=== PATIENT | male | born 1970 | race Hispanic/Latino ===

== ENCOUNTER 2019-11-06 11:11 | Inpatient (IN) | payer MEDICARE, OTHER ==
[~2019-11-06] VITALS: Ht 185.4 cm; Wt 82.0 kg
--- NOTE | 2019-11-06 11:46 | NUR ---
DIRECT ADMISSION FOR SERVICES OF DR. SEVERINO . . PT AAO X 3 , ORIENTATED TO HIS ROOM AND ADMISSION DATA. AND DR. PRADHAN .
--- NOTE | 2019-11-06 12:20 | NUR ---
PT TO COMPO CONVEYOR OPERATOR , VIA BED FOR THE INSERTION OF A PERMACATHETER, ORDER. CONSENT ,
--- NOTE | 2019-11-06 12:23 | NUR ---
PT HAS A LEFT LEG BRACE , PT HX OF HAVING FREQ , ANKLE SURGERY, AND HAS HARDWARE , IN HIS LOWER LEG , STATED THAT HE ALSO HAS A FRICTION WOUND , UCLER CLOSE TO HIS ANKLE THAT HE GOES TO WOUND CARE FOR SERVICES , WILL MONITOR . AREA . DENIES ANY DISCOMFORT. IV . ACCESS STARTED UNDER ASPECT TECH ,WITH A 18 abbocaTH, .with good blood return noted. site care. given
[2019-11-06 12:27] LABS: MEAN CORPUSCULAR HEMOGLOBIN 34.8 pg (27.0-33.0); MEAN CORPUSCULAR HGB CONC 34.3 g/dL (32.0-36.0); MEAN CORPUSCULAR VOLUME 101.7 fL (79-99); PLATELET COUNT (AUTO) 245 K/uL (130-400); RED BLOOD CELL COUNT(AUTO) 1.78 MIL/uL (4.50-6.20); RED CELL DISTRIBUTION WIDTH 15.2 % (11.0-15.5); WHITE BLOOD COUNT (AUTO) 4.1 K/uL (4.8-10.8)
[2019-11-06 12:40] LABS: INR 0.99 (0.85-1.15); PROTHROMBIN TIME 10.7 SEC (9.6-11.6)
[2019-11-06 12:41] LABS: HEMATOCRIT 18.1 % (42-54)
[2019-11-06 13:02] LABS: HEMOGLOBIN A1C 7.2 % (4.0-6.0)
[2019-11-06 13:29] VITALS: BP 144/87
[2019-11-06 13:57] LABS: % IRON SATURATION 18.4 % (30-44)
[2019-11-06] MEDS ORDERED: LIDOCAINE HCL 1% MDV 50ML VIAL ONE (14:12)
[2019-11-06 14:13] LABS: ALBUMIN 3.2 g/dL (3.5-5.0); BILIRUBIN,TOTAL 0.4 mg/dL (0.2-1.0); CREATININE 6.7 mg/dL (0.5-1.5); POTASSIUM 3.8 mmol/L (3.5-5.1)
--- NOTE | 2019-11-06 15:00 | NUR ---
POST OP PT ARRIVED FROM FLOATING DERRICK OPERATOR, R CHEST PERMA CATH IN PLACE, PT IS AWAKE, ALERT AND ORIENTED, DRESSING D/I, NO DRAINAGE OR BLEEDING NOTED, INFORMED PRIMARY, MONITOR V/S
[2019-11-06 15:46] LABS: CREATININE 6.7 mg/dL (0.5-1.5)
[2019-11-06] MEDS ORDERED: SODIUM CHLORIDE 0.9% 10 ML VIAL IVP SCH (16:00)
[2019-11-06] MEDS ORDERED: DEXTROSE 50%-WATER 50 ML DISP.SYRIN IV PRN (16:00)
[2019-11-06] MEDS ORDERED: GLUCAGON 1MG KIT 1 MG ML IM PRN ×2 (16:00→18:15)
[2019-11-06] MEDS ORDERED: ONDANSETRON HCL 4 MG/2 ML VIAL IVP PRN (16:00)
[2019-11-06] MEDS ORDERED: ACETAMINOPHEN 325 MG TAB PO PRN ×2 (16:00)
--- NOTE | 2019-11-06 16:00 | NUR ---
left arm restriction band placed . iv dc to his left forearm, , restarted a 18 abbocath under aspect tech, to his rt forearm ,with good blood return noted. site care given,, review plan of care and cont .dr. kumari
[2019-11-06] MEDS ORDERED: INSULIN R PO SSI SQ SCH (16:30)
[2019-11-06 17:21] VITALS: BP 141/78
[2019-11-06] MEDS ORDERED: PANT40TA54 PO (18:06)
[2019-11-06] MEDS ORDERED: CALC0.5C11 PO (18:06)
[2019-11-06] MEDS ORDERED: PRED10TA3 PO (18:06)
[2019-11-06] MEDS ORDERED: TACR1CAP10 PO (18:06)
[2019-11-06] MEDS ORDERED: ASPI-556 PO (18:06)
[2019-11-06] MEDS ORDERED: ROSU5TAB12 PO (18:06)
[2019-11-06] MEDS ORDERED: FURO40TA5 PO (18:06)
[2019-11-06] MEDS ORDERED: NIFE20CA PO (18:06)
[2019-11-06] MEDS ORDERED: CHOL200012 PO (18:06)
[2019-11-06] MEDS ORDERED: INSLAN SQ (18:11)
[2019-11-06] MEDS ORDERED: SEVE800T27 PO (18:11)
--- NOTE | 2019-11-06 18:55 | NUR ---
DILAYSIS TREATMENT STARTED AT 1821. SEE DIALYSIS FLOW SHEET FOR V/S AND TREATMENT , ALSO WAS GIVEN ONE UNIT OF PRBC , . FOR A HGB OF 6.2 SEE BLOOD TRANSFUSIONFLOW SHEET FOR V/S DID NOT HAVE A REACTION TO BLOOD TRANSFUSION MONITOR V/S AND PT . INFUSING VIA DIALYSIS ,TOLERATE WELL
[2019-11-06 19:20] VITALS: BP 157/89
[2019-11-06] MEDS: INSULIN HUMULIN R 100 UNIT/ML 3ML SQ SCH (21:00)
[2019-11-06 23:21] VITALS: BP 147/86
--- NOTE | 2019-11-06 23:38 | NUR ---
TELE TELE MONITOR PLACED AT THIS TIME. TELE MONITOR REPORTING SINUS RHYTHM 94 BPM.
[2019-11-07 03:15] VITALS: BP 142/76
[2019-11-07] MEDS: DEXTROSE 50%-WATER 50 ML DISP.SYRIN IV PRN (05:44)
[2019-11-07] MEDS: INSULIN HUMULIN R 100 UNIT/ML 3ML SQ SCH ×4 (07:30→21:32)
[2019-11-07 08:17] VITALS: BP 148/80
[2019-11-07] MEDS ORDERED: SODIUM CHLORIDE 0.9% 1000ML 1,000 ML IV PRN (10:15)
[2019-11-07] MEDS ORDERED: ACETAMINOPHEN 325 MG TAB PO PRN (10:15)
[2019-11-07] MEDS ORDERED: HEPARIN SODIUM 5000UNIT/ML 1ML VIAL IJ PRN (10:15)
[2019-11-07] MEDS ORDERED: 0.9% SODIUM CHLORIDE 1000 ML IV BAG IV PRN (10:15)
[2019-11-07] MEDS ORDERED: EPOETIN ALFA 10,000 UNIT/ML VIAL SQ SCH (11:45)
[2019-11-07 12:16] VITALS: BP 143/82
--- NOTE | 2019-11-07 14:20 | NUR ---
PT REQUESTING MORE INFORMATION ON DIALYSIS OPTIONS BEFORE ACCEPTING FISTULA PLACEMENT. DR SEVERINO MADE AWARE. CARDIOVASCULAR CONSULT STOPPED/PLACED ON HOLD PER MD AND WILL SEE PT TOMORROW. CHARGE NURSE BILLY QUILES MADE AWARE OF SITUATION.
--- NOTE | 2019-11-07 16:09 | NUR ---
[facility] consult patient assessed as ordered. Wound care recommendations submitted per protocol. Addendum: 11/07/19 at 1612 by BHARATHI CASTANEDA RN/DAVID Amended: Links added.
[2019-11-07 16:18] VITALS: BP 177/94
[2019-11-07 19:49] LABS: HEMATOCRIT 18.4 % (42-54)
--- NOTE | 2019-11-07 19:56 | NUR ---
MD REPEAT H/H RESULTS CALLED BY LAB= 6.2/18.4, ON CRITICAL LEVEL. PAGED ON BLACKWOOD, LEAD RIDER MD VIA ANSWERING SERVICE. MD CALLED BACK AND REFERRED CRITICAL VALUES WELL PT'S ELEVATED BP. NEW ORDERS GIVEN BY , PLEASE REFER TO CPOE. WILL MEDICATE PT.
--- NOTE | 2019-11-07 20:26 | NUR ---
MEDS SHIFT ASSESSMENT DONE, PLEASE REFER TO CHART. DUE MEDS ADMINISTERED, TOLERATED WELL. KEPT RESTED AND COMFORTABLE IN BED. CALL LIGHT WITHIN REACH. WILL MONITOR PT. Addendum: 11/08/19 at 0056 by CHERY HINTON RN RN Amended: Links added.
[2019-11-07 20:50] VITALS: BP 181/103
[2019-11-07] MEDS ORDERED: AMLODIPINE BESYLATE 5 MG TAB PO SCH (21:15)
[2019-11-07] MEDS: HONEY 1 APPL/ML TUBE TP SCH (22:22)
--- NOTE | 2019-11-07 22:25 | NUR ---
WOUND PT JUST HAD HIS SHOWER. WOUND DRESSING DONE TO LEFT ANKLE ULCERS. CLEANSED WITH SALINE, PAT DRY THEN APPLIED MEDIHONEY. ULCERS COVERED WITH GAUZE THEN SECURED WITH KERLIX AND FANG WRAP. Addendum: 11/08/19 at 0103 by CHERY HINTON RN RN Amended: Links added.
[2019-11-08] VITALS (7 sets, daily range): BP systolic 170–186; BP diastolic 91–107
--- NOTE | 2019-11-08 00:29 | NUR ---
BLOOD SUGAR PT AWAKENED AND CALLED FOR BLOOD SUGAR CHECK. PT CLAIMS SWEATY AND IS FEELING BAD. BLOOD SUGAR CHECKED=31. D50 1 AMPULE GIVEN IV. PROVIDED PT WITH SNACKS AND ENCOURAGED TO EAT. RANDOM BLOOD GLUCOSE ORDERED STAT. WILL RE-ASSESS PT.
[2019-11-08] MEDS: DEXTROSE 50%-WATER 50 ML DISP.SYRIN IV PRN (00:31)
--- NOTE | 2019-11-08 01:00 | NUR ---
RE-CHECKED BLOOD SUGAR RE-HSOEOCZ=847. PT CLAIMS OF FEELING BETTER. WILL MONITOR PT.
[2019-11-08 05:30] LABS: BASOPHILS % (AUTO) 0.2 % (0.0-5.0); EOSINOPHILS % (AUTO) 0.9 % (0.0-8.0); LYMPHOCYTES % (AUTO) 40.6 % (21.0-51.0); MEAN CORPUSCULAR HEMOGLOBIN 34.2 pg (27.0-33.0); MEAN CORPUSCULAR VOLUME 100.5 fL (79-99); MONOCYTES % (AUTO) 9.3 % (3.0-13.0); NEUTROPHILS % (AUTO) 48.8 % (40.0-77.0); PLATELET COUNT (AUTO) 190 K/uL (130-400); RED BLOOD CELL COUNT(AUTO) 1.93 MIL/uL (4.50-6.20); RED CELL DISTRIBUTION WIDTH 15.3 % (11.0-15.5); WHITE BLOOD COUNT (AUTO) 4.3 K/uL (4.8-10.8)
[2019-11-08 05:34] LABS: HEMATOCRIT 19.4 % (42-54)
[2019-11-08 05:57] LABS: CREATININE 4.3 mg/dL (0.5-1.5); PHOSPHORUS 4.8 mg/dL (2.5-4.9); POTASSIUM 4.1 mmol/L (3.5-5.1)
[2019-11-08] MEDS: INSULIN HUMULIN R 100 UNIT/ML 3ML SQ SCH ×2 (06:15→11:30)
--- NOTE | 2019-11-08 06:15 | NUR ---
ROUNDS PT IS RESTING WELL, FAIRLY ASLEEP. KEPT UNDISTURBED FOR NOW. FOR MORE CARE.
[2019-11-08 08:10] LABS: HEPATITIS Bs ANTIGEN SCREEN P Negative (Negative)
--- NOTE | 2019-11-08 11:33 | NUR ---
CM NOTE/[facility] REFERRAL NEW REFERRAL FOR [facility] FOR PERITONEAL DIALYSIS PER DR. SEVERINO. LESLIE FILLED, REFERRAL SENT TO [facility], WILL FOLLOW UP FOR SUBMITTANCE. PENDING CHEST XRAY RESULTS, WILL FAX WHEN OBTAINED.
--- NOTE | 2019-11-08 14:30 | NUR ---
DR. SEVERINO MD HERE TO SEE PATIENT. REVIEWED HOME MEDICATIONS. INFORMED OF PATIENTS BLOOD PRESSURE AND BLOOD SUGAR TRENDS IN HOSPITAL. DR. SEVERINO SPOKE TO PATIENT IN REGARDS TO HEMODIALYSIS TREATMENT OPTIONS (AV GRAFT VS FISTULA VS PERITONEAL DIALYSIS). PATIENT TOLD DR. SEVERINO THAT HE PLANS TO HAVE RENAL TRANSPLANT IN 3 MONTHS AND DOES NOT SEE RATIONAL WITH HAVING A PERMANENT HD ACCESS PLACED RIGHT NOW IF HE MAY NOT NEED DIALYSIS TREATMENTS AFTER RENAL TRANSPLANT. DR. SEVERINO EXPLAINED TO PATIENT THAT IT WAS A GOOD IDEA TO HAVE AN AV FISTULA PLACED JUST IN CASE PLAN FOR RENAL TRANSPLANT DOESN'T PROCEED PLANNED. PATIENT TOLD DR. SEVERINO HE WAS NOT READY TO MAKE A DECISION YET.
--- NOTE | 2019-11-08 14:53 | NUR ---
CM NOTE/[facility] PER [facility] AT [facility], PROCESSING CLINICAL INFORMATION. CXR REPORT ALONG WITH COVID ASSESSMENT FAXED AND RECEIVED.
--- NOTE | 2019-11-08 15:00 | NUR ---
DR. TREVINO' NURSE SPOKE TO DR. JUAREZ'S NURSE BHARAT AND UPDATED THAT PATIENT HAS NOT MADE DECISION TO PROCEED WITH AV GRAFT VS FISTULA PLACEMENT YET.
--- NOTE | 2019-11-08 15:32 | NUR ---
RD NOTIFICATION Pt with 75gm CC, Renal Dialysis Diet order in place. Pt diet held at time of screen. Recommend to continue current diet order. RD to follow up with Peritoneal Dialysis Nutrition education. RD to continue to monitor. Please notify as additional nutrition concerns arise. Thank you. Addendum: 11/08/19 at [address] Amended: Links added.
--- NOTE | 2019-11-08 15:40 | NUR ---
CM INITIAL ASSESSMENT MEET WITH PATIENT IN ROOM. PER PATIENT, IS SEMI-INDEPENDENT WITH ADLS, LIVES WITH SPOUSE AND SON, HAS TRANSFER CHAIR, AND FEELS SAFE TO RETURN HOME ONCE MEDICALLY CLEARED. RENAL PENDING DIALYSIS CHAIR DATE/TIME. WILL FOLLOW UP ACCORDINGLY. Addendum: 11/08/19 at 1541 by FRANCISCO GAXIOLA RN CM Amended: Links added.
[2019-11-08] MEDS: AMLODIPINE BESYLATE 5 MG TAB PO SCH (16:34)
[2019-11-08] MEDS: SEVELAMER HCL 800 MG TABLET PO SCH (17:39)
[2019-11-08] MEDS: TACROLIMUS 1 MG CAPSULE PO SCH (20:08)
[2019-11-08] MEDS: HONEY 1 APPL/ML TUBE TP SCH (20:08)
--- NOTE | 2019-11-08 20:12 | NUR ---
PATIENT WITH ELEVATED BP, 182/89, I CALLED DR. JARAD BLACKWOOD. NEW ORDERS FOR LISINOPRIL 40 PO NOW AND THEN DAILY. PATIENT UPDATED ON NEW ORDERS. PATIENT ALSO WITH ELEVATED GLUCOSE. PER PATIENT, HE DID NOT RECEIVE LANTUS THIS MORNING. HE STATES HIS SUGAR DROPS. PER REPORT, PATIENT IS NOT ON AN INSULIN SLIDING SCALE, ONLY LANTUS 15 UNITS DAILY. WILL CONT TO MONITOR CLOSELY.
[2019-11-08] MEDS ORDERED: LISINOPRIL 40 MG TABLET PO SCH (21:15)
[2019-11-09 04:00] VITALS: BP 176/89
[2019-11-09 05:13] LABS: HEMATOCRIT 22.4 % (42-54); MEAN CORPUSCULAR HEMOGLOBIN 32.9 pg (27.0-33.0); MEAN CORPUSCULAR HGB CONC 33.5 g/dL (32.0-36.0); MEAN CORPUSCULAR VOLUME 98.2 fL (79-99); PLATELET COUNT (AUTO) 188 K/uL (130-400); RED BLOOD CELL COUNT(AUTO) 2.28 MIL/uL (4.50-6.20); RED CELL DISTRIBUTION WIDTH 14.8 % (11.0-15.5); WHITE BLOOD COUNT (AUTO) 4.2 K/uL (4.8-10.8)
[2019-11-09 05:34] LABS: EOSINOPHILS % (MANUAL) 1 % (1-6); LYMPHOCYTES % (MANUAL) 37 % (22-44); MAN.DIFF COMMENT-IMPRESSION MANUAL DIFFERENTIAL; MONOCYTES % (MANUAL) 13 % (2-9); REACTIVE LYMPHOCYTES 3 % (0-0); SEGMENTED NEUTROPHILS % 46 % (40-70)
[2019-11-09 05:35] LABS: PLATELET MORPHOLOGY COMMENT ADEQUATE
--- NOTE | 2019-11-09 05:38 | NUR ---
PATIENT WITH GLUCOSE OF 441 MG/DL. PATIENT TO RECEIVE LANTUS 15 UNITS THIS MORNING.
[2019-11-09 05:46] LABS: CREATININE 4.1 mg/dL (0.5-1.5); POTASSIUM 4.2 mmol/L (3.5-5.1)
--- NOTE | 2019-11-09 06:41 | NUR ---
SPOKE WITH DR. JARAD BLACKWOOD REGARDING ELEVATED GLUCOSE. INFORMED HIM DR. SEVERINO DISCONTINUED SLIDING SCALE YESTERDAY. ORDERS TO START 1/2 DOSE SLIDING SCALE.
[2019-11-09] MEDS: INSULIN HUMULIN R 100 UNIT/ML 3ML SQ SCH ×2 (07:03→11:44)
[2019-11-09] MEDS ORDERED: INSULIN GLARGINE 100 UNITS/ML 10 ML VIAL SQ SCH (07:30)
[2019-11-09 08:12] VITALS: BP 187/99
[2019-11-09] MEDS: SEVELAMER HCL 800 MG TABLET PO SCH ×2 (08:54→11:43)
[2019-11-09] MEDS: TACROLIMUS 1 MG CAPSULE PO SCH (08:54)
[2019-11-09] MEDS: HONEY 1 APPL/ML TUBE TP SCH (08:55)
[2019-11-09] MEDS: AMLODIPINE BESYLATE 5 MG TAB PO SCH (08:55)
[2019-11-09] MEDS ORDERED: PANTOPRAZOLE SODIUM 40 MG TABLET.DR PO SCH (09:00)
[2019-11-09] MEDS ORDERED: PREDNISONE 10 MG TABLET PO SCH (09:00)
[2019-11-09] MEDS ORDERED: LISINOPRIL 40 MG TABLET PO SCH (09:00)
[2019-11-09] MEDS ORDERED: CHOLECALCIFEROL 5000 UNIT PO SCH (09:00)
[2019-11-09 11:25] VITALS: BP 176/100
[2019-11-09] MEDS ORDERED: AMLO-258 PO (12:51)
[2019-11-09] MEDS ORDERED: LISI40TA4 PO (12:51)
--- NOTE | 2019-11-09 16:06 | NUR ---
CM NOTE/[facility] CHAIR DATE/TIME APPROVED PER [facility], DIALYSIS CHAIR AND TIME APPROVED FOR MWF AT 2:45PM TO START 11/13/19. PRIMARY NURSE, KAREN DOUGHERTY, MADE AWARE WELL PATIENT.
[2019-11-09 16:55] VITALS: BP 140/99
--- NOTE | 2019-11-09 17:30 | NUR ---
DISCHARGE PATIENT GIVEN DISCHARGE INSTRUCTIONS AND EDUCATION ON FOLLOW UP APPOINTMENTS AND NEW PRESCRIBED MEDICATIONS. PATIENT VERBALIZED UNDERSTANDING OF ALL EDUCATION GIVEN VIA TEACH BACK. IV DISCONTINUED, CATHETER INTACT. NO DISTRESS NOTED UPON DISCHARGE. ALL BELONGINGS TAKEN WITH.,
[2019-11-09] MEDS ORDERED: Rosuvastatin Calcium 5 MG PO SCH (21:00)
== END 2019-11-09 17:15 | disposition home or self-care (01) | DRG 698 ==
LOC: EDH 11:11 → 3BH 11:33 → 3CH 11-07 06:00
PROVIDERS: ADMIT Internal Medicine Nephrology; ATTEND Internal Medicine Nephrology
PROC: 0JH63XZ Insertion of Tunneled Vascular Access Device into Chest Subcutaneous Tissue and Fascia, Percutaneous Approach (ICD-10-PCS; principal; 2019-11-06)
PROC: 02HV33Z Insertion of Infusion Device into Superior Vena Cava, Percutaneous Approach (ICD-10-PCS; 2019-11-06)
PROC: B5181ZA Fluoroscopy of Superior Vena Cava using Low Osmolar Contrast, Guidance (ICD-10-PCS; 2019-11-06)
PROC: B548ZZA Ultrasonography of Superior Vena Cava, Guidance (ICD-10-PCS; 2019-11-06)
PROC: 30233N1 Transfusion of Nonautologous Red Blood Cells into Peripheral Vein, Percutaneous Approach (ICD-10-PCS; 2019-11-06)
PROC: 5A1D70Z Performance of Urinary Filtration, Intermittent, Less than 6 Hours Per Day (ICD-10-PCS; 2019-11-06)
PROC: 5A1D70Z Performance of Urinary Filtration, Intermittent, Less than 6 Hours Per Day (ICD-10-PCS; 2019-11-07)
PROC: 5A1D70Z Performance of Urinary Filtration, Intermittent, Less than 6 Hours Per Day (ICD-10-PCS; 2019-11-08)
DX: T86.12 Kidney transplant failure (principal); N18.6 End stage renal disease; I12.0 Hypertensive chronic kidney disease with stage 5 chronic kidney disease or end stage renal disease; E87.2 Acidosis; Y83.0 Surgical operation with transplant of whole organ as the cause of abnormal reaction of the patient, or of later complication, without mention of misadventure at the time of the procedure; D64.9 Anemia, unspecified; E11.621 Type 2 diabetes mellitus with foot ulcer; L97.529 Non-pressure chronic ulcer of other part of left foot with unspecified severity; E78.5 Hyperlipidemia, unspecified; E11.22 Type 2 diabetes mellitus with diabetic chronic kidney disease; E11.51 Type 2 diabetes mellitus with diabetic peripheral angiopathy without gangrene
CPT/HCPCS: 36415; 36430; 36558; 71045; 77001; 80048; 80053; 80061; 82040; 82565; 82728; 82947; 82948; 83036; 83540; 83550; 84100; 84520; 85014; 85018; 85025; 85027; 85610; 86701; 86704; 86706; 86850; 86900; 86901; 86922; 87340; 87390; 87520; 90935; 93005; C1750; G0378; J0885; J1610; J1644; J1815; J3490; J7070; J7507; J7512; P9016

== ENCOUNTER → 2020-01-11 | Outpatient (CLI) | payer MEDICARE ==
[~2020-01-11] MED LIST: AMLO10TA7 PO; CHOL200012 PO; INSLAN SQ; LISI40TA4 PO; PANT40TA25 PO; PRED10TA3 PO; ROSU5TAB12 PO; SEVE800T27 PO; TACR1CAP10 PO
== END | disposition home or self-care (01) ==
LOC: SHCH 11:26
PROVIDERS: ATTEND Internal Medicine Cardiovascular Disease
DX: I10 Essential (primary) hypertension (principal)
CPT/HCPCS: 93306; 93356

== ENCOUNTER → 2020-01-16 | Outpatient (CLI) | payer MEDICARE | END | disposition home or self-care (01) | LOC: SHCH 09:50 | PROVIDERS: ATTEND Internal Medicine Cardiovascular Disease | DX: I73.9 Peripheral vascular disease, unspecified (principal) | CPT/HCPCS: 93925 ==

== ENCOUNTER → 2020-01-18 | Outpatient (CLI) | payer MEDICARE ==
[~2020-01-18] MED LIST changes: +REGADENOSON 0.4 MG/5 ML PF SYG IVP SCH
== END | disposition home or self-care (01) ==
LOC: SHCH 08:05
PROVIDERS: ATTEND Internal Medicine Cardiovascular Disease
DX: I51.7 Cardiomegaly (principal); R06.00 Dyspnea, unspecified; I73.9 Peripheral vascular disease, unspecified; I25.10 Atherosclerotic heart disease of native coronary artery without angina pectoris; Z94.0 Kidney transplant status
CPT/HCPCS: 78452; 93017; 96374; A9500 ×2; J2785

== ENCOUNTER → 2021-06-25 | Outpatient (CLI) | payer OTHER ==
[~2021-06-25] MED LIST changes: +AMLO-258 PO; -AMLO10TA7 PO; -LISI40TA4 PO; +LISI40TA9 PO; -PANT40TA25 PO; +PANT40TA54 PO; -REGADENOSON 0.4 MG/5 ML PF SYG IVP SCH
== END | disposition home or self-care (01) ==
LOC: SHCH 14:56
PROVIDERS: ATTEND Internal Medicine Cardiovascular Disease
DX: I65.23 Occlusion and stenosis of bilateral carotid arteries (principal)
CPT/HCPCS: 93880